=== PATIENT | male | born 1975 | race Two or more races ===

== ENCOUNTER 2024-07-28 15:19 | Inpatient (IN) | payer MEDICAID, OTHER ==
[~2024-07-28] VITALS: Ht 188 cm; Wt 85.8 kg
--- NOTE | 2024-07-28 15:38 | ED.PDOC ---
History of Present Illness HPI Comments This is a 49-year-old male who comes in with chief complaint of abdominal pain. The patient states that the pain started approximately 2 hours ago. He states that over the past three days he has had some hematuria at approximately two it hours ago he developed some left lower quadrant pain that radiates to the left upper quadrant. The patient denies any fever or chills. He denies any dysuria. 911 was called and the patient was transported to our facility. EN route, the patient received 250 cc of normal saline and had an Accu-Chek of 378. 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 Associated signs and symptoms Associated hematuria with the left upper and lower quadrant pain Past Medical History PAST MEDICAL HISTORY: DM, High Lipids, HTN Past Medical History (Other): Pancreatitis, left DVT Surgical History: Denies all surgeries Family History Family History: Family hx of DM, Family hx of Cancer Social History Smoker: Cigarettes Alcohol: Occasionally Drugs: Denies Drug Use Lives In: Home Constitutional: denies: chills, diaphoresis, fatigue, fever, malaise, sweats, weakness, others EENTM: denies: blurred vision, double vision, ear bleeding, ear discharge, ear drainage, ear pain, ear ringing, eye pain, eye redness, hearing loss, mouth pain, mouth swelling, nasal discharge, nose bleeding, nose congestion, nose pain, photophobia, tearing, throat pain, throat swelling, voice changes, others Respiratory: denies: cough, hemoptysis, orthopnea, SOB at rest, shortness of breath, SOB with excertion, stridor, wheezing, others Cardiovascular: denies: chest pain, dizzy spells, diaphoresis, Dyspnea on exertion, edema, irregular heart beat, left arm pain, lightheadedness, palpitations, PND, syncope, others Gastrointestinal: reports: abdominal pain; denies: abdomen distended, blood streaked bowels, constipated, diarrhea, dysphagia, difficulty swallowing, hematemesis, melena, nausea, poor appetite, poor fluid intake, rectal bleeding, rectal pain, vomiting, others Genitourinary: reports: hematuria; denies: burning, dysuria, flank pain, frequency, incontinence, penile discharge, penile sore, pain, testicle pain, testicle swelling, urgency, others Neurological: denies: dizziness, fainting, headache, left sided numbness, left sided weakness, numbness, paresthesia, pre-existing deficit, right sided numbness, right sided weakness, seizure, speech problems, tingling, tremors, weakness, others Musculoskeletal: denies: back pain, gout, joint pain, joint swelling, muscle pain, muscle stiffness, neck pain, others Integumetry: denies: bruises, change in color, change in hair/nails, dryness, laceration, lesions, lumps, rash, wounds, others Allergic/Immunocompromised: denies: Difficulty Healing, Frequent Infections, Hives, Itching, others Hematologic/Lymphatic: denies: anemia, blood clots, easy bleeding, easy bruising, swollen glands, others Endocrine: denies: excessive hunger, excessive sweating, excessive thirst, excessive urination, flushing, intolerance to cold, intolerance to heat, unexplained weight gain, unexplained weight loss, others Psychiatric: denies: anxiety, bipolar disorder, depression, hopeless, panic disorder, schizophrenia, sleepless, suicidal, others Physical Exam General Appearance: Moderate Distress HEENT: Normal ENT Inspection, Pharynx Normal, TMs Normal Neck: Full Range of Motion, Non-Tender, Normal, Normal Inspection Respiratory: Chest Non-Tender, Lungs Clear, No Accessory Muscle Use, No Respiratory Distress, Normal Breath Sounds Cardiovascular: No Edema, No JVD, No Murmur, No Gallop, Normal Peripheral Pulses, Regular Rate/Rhythm Breast Exam: Deferred Gastrointestinal: LLQ, LUQ, No Organomegaly, No Pulsatile Mass, Normal Bowel Sounds, Soft, Tenderness Genitalia: Deferred Pelvic: Deferred Rectal: Deferred Extremities: No calf tenderness, Normal capillary refill, Normal inspection, Normal range of motion, Non-tender, No pedal edema Musculoskeletal : Apperance: Normal Neurologic: Alert, deputy chief magistrate II-XII nml as Tested, No Motor Deficits, Normal Affect, Normal Mood, No Sensory Deficits Cerebellar Function: Normal Reflexes: Normal Skin: Dry, Normal Color, Warm Lymphatic: No Adenopathy Was a procedure done? Was a procedure done?: No Differential Dx Considerations may include: Diverticulitis, UTI, renal stones X-Ray, Labs, Meds, VS Vital Signs Date Time Temp Pulse Resp B/P (MAP) Pulse Ox O2 Delivery O2 Flow Rate FiO2 07/28/24 15:30 98.4 102 18 161/88 (112) 96 98.4 Lab Test 07/28/24 17:12 07/28/24 15:40 Range/Units Sodium Level 133 L 136-145 mmol/L Potassium Level 3.6 3.5-5.1 mmol/L Chloride Level 98 98-107 mmol/L Carbon Dioxide Level 24 20-31 mmol/L Anion Gap 11 5-15 Blood Urea Nitrogen 9 9-23 mg/dL Creatinine 1.14 0.700-1.30 mg/dL Glomerular Filtration Rate Calc 78 >90 mL/min BUN/Creatinine Ratio 7.9 L 10.0-20.0 Serum Glucose 359 H 74-106 mg/dL Calcium Level 9.7 8.7-10.4 mg/dL Total Bilirubin 0.5 0.2-1.0 mg/dL Aspartate Amino Transferase (AST) 12 L 13-40 U/L Alanine Aminotransferase (ALT) 10 7-40 U/L Alkaline Phosphatase 158 H 46-116 U/L Total Protein 8.1 5.7-8.2 g/dL Albumin 4.2 3.2-4.8 g/dL Lipase 51 12-53 U/L White Blood Count 7.8 4.4-10.8 10^3/uL Red Blood Count 5.81 4.5-5.90 10^6/uL Hemoglobin 15.3 13.5-17.5 g/dL Hematocrit 46.4 41.0-53.0 % Mean Corpuscular Volume 79.8 L 80.0-100.0 fL Mean Corpuscular Hemoglobin 26.3 L 28.0-32.0 pg Mean Corpuscular Hemoglobin Concent 33.0 32.0-36.0 g/dL Red Cell Distribution Width 17.0 H 11.8-14.3 % Platelet Count 333 140-450 10^3/uL Mean Platelet Volume 8.5 6.9-10.8 fL Neutrophils (%) (Auto) 68.1 37.0-80.0 % Lymphocytes (%) (Auto) 22.7 10.0-50.0 % Monocytes (%) (Auto) 8.2 0.0-12.0 % Eosinophils (%) (Auto) 0.5 0.0-7.0 % Basophils (%) (Auto) 0.5 0.0-2.0 % Neutrophils # (Auto) 5.3 1.6-8.6 10 ^3/uL Lymphocytes # (Auto) 1.8 0.4-5.4 10 ^3/uL Monocytes # (Auto) 0.6 0-1.3 10 ^3/uL Eosinophils # (Auto) 0 0-0.8 10 ^3/uL Basophils # (Auto) 0 0-0.2 10 ^3/uL Nucleated Red Blood Cells 0.1 % IV Hep-Lock was established The patient is being given morphine 4 mg IV push for the pain The patient was given Zofran 4 mg IV push for the nausea Cat scan of the abdomen and pelvis shows: IMPRESSION: 1. No acute abdominal or pelvic findings. Bladder is diffusely thick walled, correlate for cystitis. Diffuse soft tissue density in the retroperitoneum, could be related to retroperitoneal fibrosis. This can be better evaluated with CT of the abdomen and pelvis with contrast. The patient's CBC and chemistry panel is within normal limits The patient's glucose is 359 The patient continues to have abdominal pain Images Reviewed?: Images reviewed and evaluated by me Time of 1ST Reevaluation: 15:37 Reevaluation 1ST: Unchanged Patient Education/Counseling: Diagnosis, Treatment, Prognosis Family Education/Counseling: No Family Present Departure 1 Departure Time of Disposition: 15:38 Impression: Primary Impression: Abdominal pain of unknown etiology Disposition: 09 ADMITTED INPATIENT Admit to: Med Surg Condition: Fair Critical Care Note Critical Care Time?: No Stability Stability form required: Yes Unstable for transfer: ED Physician Assesment (Clinical assesment) Heart Score Heart Score: Heart Score Response (Comments) Value History N/A 0 EKG N/A 0 Age N/A 0 Risk Factors N/A 0 Troponin N/A 0 Total 0 IBRAHIMA LUO MD July 28, 2024 15:38
[2024-07-28 15:50] LABS: Basophils # (auto) 0 10 ^3/uL (0-0.2); Basophils % (auto) 0.5 % (0.0-2.0); Eosinophils # (auto) 0 10 ^3/uL (0-0.8); Eosinophils % (auto) 0.5 % (0.0-7.0); Hematocrit 46.4 % (41.0-53.0); Hemoglobin 15.3 g/dL (13.5-17.5); Lymphocytes # (auto) 1.8 10 ^3/uL (0.4-5.4); Lymphocytes % (auto) 22.7 % (10.0-50.0); Mean Corpuscular Hemoglobin 26.3 pg (28.0-32.0); Mean Corpuscular Volume 79.8 fL (80.0-100.0); Monocytes # (auto) 0.6 10 ^3/uL (0-1.3); Monocytes % (auto) 8.2 % (0.0-12.0); Neutrophils # (auto) 5.3 10 ^3/uL (1.6-8.6); Neutrophils % (auto) 68.1 % (37.0-80.0); Nucleated Red Blood Cells % 0.1 %; Platelet Count (auto) 333 10^3/uL (140-450); Red Blood Cells 5.81 10^6/uL (4.5-5.90); White Blood Cell 7.8 10^3/uL (4.4-10.8)
--- NOTE | 2024-07-28 16:53 | DVH ---
Exam: CT CT AB PEL WO CON-NO ORAL OR IV History: pain llq Comparison Study: None Technique: Multidetector spiral CT of the abdomen and pelvis was performed from lung bases to pubic symphysis. Imaging was performed without IV contrast. Axial, coronal and sagittal multiplanar reform ats were obtained from the axial data set by the technologist. Radiation dose : Abdomen/Pelvis: CTDIvol 8 mGy, DLP 489 mGy*cm. Findings: Evaluation of solid organs is limited due to lack of intravenous contrast use. Lung Bases: No acute or significant lung base finding. Normal heart size. No pleural or pericardial effusion. Liver: The liver is normal in size. No focal lesions. Gallbladder and biliary Tree: Unremarkable Spleen: Unremarkable Pancreas: The pancreas is grossly normal in appearance. Adrenal Glands: Unremarkable Kidneys: Kidneys are grossly normal without calculi or hydronephrosis. Bladder: Diffusely thick walled. Bowel: The stomach is grossly normal in appearance. Small bowel and colon are normal in caliber and d istribution. Normal appendix is visualized in the right lower quadrant without findings of appendicit is. Ascites: Absent Lymphadenopathy: No mesenteric, retroperitoneal or periportal lymphadenopathy. Abdominal wall and Mesentery: Diffuse soft tissue density in the retroperitoneum. Vasculature: The visualized abdominal aorta is normal in size and caliber. Evaluation of abdominal a nd pelvic vessels is limited due to lack of intravenous contrast. Pelvic Organs: Unremarkable Musculoskeletal: No aggressive focal bony lesions, acute fractures or dislocation. IMPRESSION: 1. No acute abdominal or pelvic findings. Bladder is diffusely thick walled, correlate for cystitis. Diffuse soft tissue density in the retroperitoneum, could be related to retroperitoneal fibrosis. Thi s can be better evaluated with CT of the abdomen and pelvis with contrast. Radiation optimization: All CT scans at this facility use at least one of these dose optimization niko hniques: Automated exposure control mA and/or kV adjustment per patient size (includes targeted exams where dose is matched to clinical indication) or iterative reconstruction. HS:Y
[2024-07-28 18:14] LABS: Anion Gap 11 (5-15); BUN/Creatinine Ratio 7.9 (10.0-20.0)
[2024-07-28 18:15] LABS: Alanine Aminotransferase 10 U/L (7-40); Alkaline Phosphatase 158 U/L (46-116); Aspartate Aminotransferase 12 U/L (13-40); Blood Urea Nitrogen 9 mg/dL (9-23); Calcium 9.7 mg/dL (8.7-10.4); Carbon Dioxide 24 mmol/L (20-31); Chloride 98 mmol/L (98-107); Glucose 359 mg/dL (74-106); Potassium 3.6 mmol/L (3.5-5.1); Sodium 133 mmol/L (136-145)
[2024-07-28 18:16] LABS: Albumin 4.2 g/dL (3.2-4.8); Bilirubin, Total 0.5 mg/dL (0.2-1.0); Lipase 51 U/L (12-53); Total Protein 8.1 g/dL (5.7-8.2)
[2024-07-28] MEDS ORDERED: MORPHINE SULFATE INJ 2 MG/ml SYRG IV PRN (23:30)
[2024-07-28] MEDS ORDERED: DEXTROSE (50%) 50ML SYRG IV PRN (23:30)
[2024-07-28] MEDS ORDERED: ONDANSETRON HCL 4 MG/2 ML VIAL IV PRN (23:30)
--- NOTE | 2024-07-28 23:32 | DVHHP2 ---
History of Present Illness Reason for Visit: Abdominal pain History of Present Illness 49-year-old male presents for evaluation of abdominal pain. Patient reports noticing hematuria three days ago. He states that since yesterday his urine has been clear. He states that two days ago he developed diffuse abdominal pain that is intermittent with associated dizziness. No nausea or vomiting. No fever or chills. Past Medical History Hypertension, diabetes mellitus Past Surgical History Denies Family History Cancer and diabetes mellitus Smoke: <1 pack per day ALCOHOL: occassional Drugs: None Lives: with Family Review of Systems Review of Systems Review of systems are currently negative otherwise addressed in HPI. Allergies: Coded Allergies: Acetaminophen (Verified Allergy, Unknown, 07/28/24) Hydrocodone (Verified Allergy, Unknown, 07/28/24) Exam Vital Signs Vital Signs Date Time Temp Pulse Resp B/P (MAP) Pulse Ox O2 Delivery O2 Flow Rate FiO2 07/28/24 23:00 98.6 105 16 153/94 (113) 97 98.6 Exam Gen: 49-year-old male in no apparent distress Skin: Warm, dry, normal color and texture, no rash. HEENT: Normocephalic atraumatic, mucous membranes moist and pink. Neck: Cervical and supraclavicular nodes normal without enlargement, trachea is midline, thyroid gland is normal without masses. Pulmonary: Clear to auscultation and percussion bilaterally. Cardiac: Regular rate and rhythm. No murmur Abdomen: Soft, nontender, nondistended, bowel sounds present all 4 quadrants, no guarding, no rigidity, no organomegaly. Extremities: No cyanosis, clubbing, no edema Neuro: Cranial nerves II through XII grossly intact, normal affect and speech, no focal motor deficits. Labs/Xrays ORDERING PHYSICIAN: IBRAHIMA LUO MD PROCEDURE(s): ABPL - CT AB PEL WO CON-NO ORAL OR IV REASON: pain llq ORDER NUMBER(s): [id number], ACCESSION NUMBER(s): [id number] Exam: CT CT AB PEL WO CON-NO ORAL OR IV History: pain llq Comparison Study: None Technique: Multidetector spiral CT of the abdomen and pelvis was performed from lung bases to pubic symphysis. Imaging was performed without IV contrast. Axial, coronal and sagittal multiplanar reformats were obtained from the axial data set by the technologist. Radiation dose : Abdomen/Pelvis: CTDIvol 8 mGy, DLP 489 mGy*cm. Findings: Evaluation of solid organs is limited due to lack of intravenous contrast use. Lung Bases: No acute or significant lung base finding. Normal heart size. No pleural or pericardial effusion. Liver: The liver is normal in size. No focal lesions. Gallbladder and biliary Tree: Unremarkable Spleen: Unremarkable Pancreas: The pancreas is grossly normal in appearance. Adrenal Glands: Unremarkable Kidneys: Kidneys are grossly normal without calculi or hydronephrosis. Bladder: Diffusely thick walled. Bowel: The stomach is grossly normal in appearance. Small bowel and colon are no rmal in caliber and distribution. Normal appendix is visualized in the right lower quadrant without findings of appendicitis. Ascites: Absent Lymphadenopathy: No mesenteric, retroperitoneal or periportal lymphadenopathy. Abdominal wall and Mesentery: Diffuse soft tissue density in the retroperitoneum. Vasculature: The visualized abdominal aorta is normal in size and caliber. Evaluation of abdominal and pelvic vessels is limited due to lack of intravenous contrast. Pelvic Organs: Unremarkable Musculoskeletal: No aggressive focal bony lesions, acute fractures or dislocation. IMPRESSION: 1. No acute abdominal or pelvic findings. Bladder is diffusely thick walled, correlate for cystitis. Diffuse soft tissue density in the retroperitoneum, could be related to retroperitoneal fibrosis. This can be better evaluated with CT of the abdomen and pelvis with contrast. Radiation optimization: All CT scans at this facility use at least one of these dose optimization techniques: Automated exposure control mA and/or kV adjustment per patient size (includes targeted exams where dose is matched to clinical indication) or iterative reconstruction. HS:Y Labs Test 07/28/24 17:12 07/28/24 15:40 Range/Units Sodium Level 133 L 136-145 mmol/L Potassium Level 3.6 3.5-5.1 mmol/L Chloride Level 98 98-107 mmol/L Carbon Dioxide Level 24 20-31 mmol/L Anion Gap 11 5-15 Blood Urea Nitrogen 9 9-23 mg/dL Creatinine 1.14 0.700-1.30 mg/dL Glomerular Filtration Rate Calc 78 >90 mL/min BUN/Creatinine Ratio 7.9 L 10.0-20.0 Serum Glucose 359 H 74-106 mg/dL Calcium Level 9.7 8.7-10.4 mg/dL Total Bilirubin 0.5 0.2-1.0 mg/dL Aspartate Amino Transferase (AST) 12 L 13-40 U/L Alanine Aminotransferase (ALT) 10 7-40 U/L Alkaline Phosphatase 158 H 46-116 U/L Total Protein 8.1 5.7-8.2 g/dL Albumin 4.2 3.2-4.8 g/dL Lipase 51 12-53 U/L White Blood Count 7.8 4.4-10.8 10^3/uL Red Blood Count 5.81 4.5-5.90 10^6/uL Hemoglobin 15.3 13.5-17.5 g/dL Hematocrit 46.4 41.0-53.0 % Mean Corpuscular Volume 79.8 L 80.0-100.0 fL Mean Corpuscular Hemoglobin 26.3 L 28.0-32.0 pg Mean Corpuscular Hemoglobin Concent 33.0 32.0-36.0 g/dL Red Cell Distribution Width 17.0 H 11.8-14.3 % Platelet Count 333 140-450 10^3/uL Mean Platelet Volume 8.5 6.9-10.8 fL Neutrophils (%) (Auto) 68.1 37.0-80.0 % Lymphocytes (%) (Auto) 22.7 10.0-50.0 % Monocytes (%) (Auto) 8.2 0.0-12.0 % Eosinophils (%) (Auto) 0.5 0.0-7.0 % Basophils (%) (Auto) 0.5 0.0-2.0 % Neutrophils # (Auto) 5.3 1.6-8.6 10 ^3/uL Lymphocytes # (Auto) 1.8 0.4-5.4 10 ^3/uL Monocytes # (Auto) 0.6 0-1.3 10 ^3/uL Eosinophils # (Auto) 0 0-0.8 10 ^3/uL Basophils # (Auto) 0 0-0.2 10 ^3/uL Nucleated Red Blood Cells 0.1 % Assessment/Plan Assessment/Plan Assessment Acute abdominal pain Questionable cystitis Uncontrolled diabetes mellitus Hypertension Plan Admit the patient to [facility] to the hospitalist GI consult Clear liquid diet UA pending Resume home medications Continue treatment per orders. Plan discussed with: Patient My Orders Orders - LISBETH BIGGS Procedure Category Date Status Time Admit ADMIT 07/28/24 Transmitted 19:59 Urinalysis LAB 07/28/24 Logged 23:24 Metoprolol Tartrate PHA 07/29/24 Logged Tablet (Lopressor Ta 10:00 Pantoprazole Tablet PHA 07/29/24 Logged (Protonix Tablet) 06:00 * Gi Dvh Tread Builder CONS 07/28/24 Transmitted 23:24 Basic Metabolic Panel LAB 07/29/24 Verified 04:00 Ondansetron Hcl PHA 07/28/24 Logged (Zofran) 23:30 Complete Blood Count LAB 07/29/24 Verified 04:00 Condition: Stable MINAL 07/28/24 In Process 23:24 Acetaminophen Tablet PHA 07/28/24 Logged (Tylenol Tablet) 23:30 Clear Liq Diet DIET 07/29/24 Transmitted Breakfast Bedrest With Bathroom MINAL 07/28/24 In Process Privileg 23:24 Glucose Blood PHA 07/29/24 Logged (Accu-Chek Comfort 00:00 Insulin R (Human) PHA 07/29/24 Logged (Insulin R) 00:00 Dextrose 50% Syringe PHA 07/28/24 Logged 23:30 Morphine Sulfate PHA 07/28/24 Logged Injection 23:30 Date of Service: July 28, 2024 Billing Provider: LISBETH BIGGS Common Visit Codes: [id number] INP/OBS CARE (MOD) LISBETH BIGGS July 28, 2024 23:32
[2024-07-29] MEDS: InsuLIN REG 1unit/0.01ml Soln (100units/ml) SC SCH
[2024-07-29] MEDS: ACCU-CHEK COMFORT CURVE STRIP VI SCH (05:08)
[2024-07-29] MEDS: PANTOPRAZOLE 40 MG/10 ML VIAL INJ IV ONE (05:08)
[2024-07-29] MEDS: ONDANSETRON HCL 4 MG/2 ML VIAL IV ONE (05:08)
[2024-07-29] MEDS: SODIUM CHLORIDE 0.9% 500 ML IVB ONE (05:09)
[2024-07-29] MEDS: MORPHINE SULFATE 4 MG/ML SYR/VIAL IV ONE (05:09)
[2024-07-29] MEDS: PANTOPRAZOLE 40 MG TAB PO SCH (06:00)
[2024-07-29 06:07] VITALS: PULSE 101; RESP 18; O2SAT 98
[2024-07-29 06:54] LABS: Eosinophils # (auto) 0.1 10 ^3/uL (0-0.8); Hemoglobin 15.5 g/dL (13.5-17.5); Lymphocytes # (auto) 2.2 10 ^3/uL (0.4-5.4); Monocytes # (auto) 0.6 10 ^3/uL (0-1.3); Nucleated Red Blood Cells % 0.2 %
[2024-07-29 06:55] LABS: Basophils # (auto) 0.1 10 ^3/uL (0-0.2); Basophils % (auto) 0.9 % (0.0-2.0); Eosinophils % (auto) 1.1 % (0.0-7.0); Lymphocytes % (auto) 29.4 % (10.0-50.0); Mean Corpuscular Hemoglobin 26.1 pg (28.0-32.0); Mean Corpuscular Hgb Conc. 32.2 g/dL (32.0-36.0); Mean Corpuscular Volume 80.9 fL (80.0-100.0); Monocytes % (auto) 7.4 % (0.0-12.0); Neutrophils # (auto) 4.6 10 ^3/uL (1.6-8.6); Neutrophils % (auto) 61.2 % (37.0-80.0); Platelet Count (auto) 322 10^3/uL (140-450); Red Blood Cells 5.93 10^6/uL (4.5-5.90); Red Cell Distribution Width 16.6 % (11.8-14.3); White Blood Cell 7.5 10^3/uL (4.4-10.8)
[2024-07-29 06:56] LABS: Anion Gap 10 (5-15); Carbon Dioxide 26 mmol/L (20-31); Potassium 4.1 mmol/L (3.5-5.1)
[2024-07-29 06:57] LABS: Calcium 9.8 mg/dL (8.7-10.4)
[2024-07-29 07:02] LABS: BUN/Creatinine Ratio 9.8 (10.0-20.0); Blood Urea Nitrogen 12 mg/dL (9-23); Chloride 96 mmol/L (98-107); Glucose 331 mg/dL (74-106); Sodium 132 mmol/L (136-145)
[2024-07-29 11:17] LABS: Urine Bacteria None Seen /hpf (None Seen)
[2024-07-29] MEDS: METOPROLOL TARTRATE 25 MG TAB PO SCH (11:21)
[2024-07-29 11:28] LABS: Urine Blood Negative /uL (Negative); Urine Clarity Clear (Clear); Urine Color Light-Yellow (Yellow); Urine Protein, UAD 1+ (Negative); Urine Specific Gravity 1.018 (1.001-1.035); Urine Squamous Epithelial Cell FEW /hpf (<5); Urine Urobilinogen Normal (Negative); Urine WBC 30 /HPF (0-3)
--- NOTE | 2024-07-29 11:28 | DVHINCON2 ---
GI Consult Consult Note GI consult note Date of Consultation: 07/29/2024 Chief Complaint: Abdominal pain Referring Physician: Brandon MARTÍNEZ H&P: 49-year-old male presented to ER for abdominal pain. Patient is seen in ER lobby. Started one day ago, pain is improving at this time. Feels similar to when patient had pancreatitis in the past. No nausea or vomiting. Last bowel movement one day ago, no melena or red blood in stool. Patient is complaining of dizziness and is using a wheelchair at this time. Patient also complains of hematuria, last week, passed a kidney stone. No hematuria at this time SP EGD/colonoscopy three years ago, WNL per patient Past Medical History: Hypertension, diabetes Past Surgical History: Denies Social History: Smoke: <1 pack per day ALCOHOL: occassional Drugs: None Lives: with Family Family History: Noncontributory Review of Systems: Constitutional: no fever, chill, weight loss HEENT: no eye pain, no hearing loss, no oral lesion, no scleral icterus Heart: no chest pain, no chest pressure Lung: no cough, no dyspnea with exertion Abdomen: see HPI Physical exam: General: NAD, AAOX3 Chest: lung philip clear to auscultation Heart: RRR, no murmur Abdomen: non-distended, no tenderness to palpation, +BS Labs: Labs Test 07/29/24 11:15 07/29/24 06:13 07/29/24 04:58 07/28/24 17:12 Range/Units White Blood Count 7.5 4.4-10.8 10^3/uL Red Blood Count 5.93 H 4.5-5.90 10^6/uL Hemoglobin 15.5 13.5-17.5 g/dL Hematocrit 48.0 41.0-53.0 % Mean Corpuscular Volume 80.9 80.0-100.0 fL Mean Corpuscular Hemoglobin 26.1 L 28.0-32.0 pg Mean Corpuscular Hemoglobin Concent 32.2 32.0-36.0 g/dL Red Cell Distribution Width 16.6 H 11.8-14.3 % Platelet Count 322 140-450 10^3/uL Mean Platelet Volume 8.6 6.9-10.8 fL Neutrophils (%) (Auto) 61.2 37.0-80.0 % Lymphocytes (%) (Auto) 29.4 10.0-50.0 % Monocytes (%) (Auto) 7.4 0.0-12.0 % Eosinophils (%) (Auto) 1.1 0.0-7.0 % Basophils (%) (Auto) 0.9 0.0-2.0 % Neutrophils # (Auto) 4.6 1.6-8.6 10 ^3/uL Lymphocytes # (Auto) 2.2 0.4-5.4 10 ^3/uL Monocytes # (Auto) 0.6 0-1.3 10 ^3/uL Eosinophils # (Auto) 0.1 0-0.8 10 ^3/uL Basophils # (Auto) 0.1 0-0.2 10 ^3/uL Nucleated Red Blood Cells 0.2 % Sodium Level 132 L 136-145 mmol/L Potassium Level 4.1 3.5-5.1 mmol/L Chloride Level 96 L 98-107 mmol/L Carbon Dioxide Level 26 20-31 mmol/L Anion Gap 10 5-15 Blood Urea Nitrogen 12 9-23 mg/dL Creatinine 1.23 0.700-1.30 mg/dL Glomerular Filtration Rate Calc 72 >90 mL/min BUN/Creatinine Ratio 9.8 L 10.0-20.0 Serum Glucose 331 H 74-106 mg/dL Calcium Level 9.8 8.7-10.4 mg/dL POC Glucose 351 H 70-106 mg/dl Total Bilirubin 0.5 0.2-1.0 mg/dL Aspartate Amino Transferase (AST) 12 L 13-40 U/L Alanine Aminotransferase (ALT) 10 7-40 U/L Alkaline Phosphatase 158 H 46-116 U/L Total Protein 8.1 5.7-8.2 g/dL Albumin 4.2 3.2-4.8 g/dL Lipase 51 12-53 U/L Imaging: CT abdomen pelvis IMPRESSION: 1. No acute abdominal or pelvic findings. Bladder is diffusely thick walled, correlate for cystitis. Diffuse soft tissue density in the retroperitoneum, could be related to retroperitoneal fibrosis. This can be better evaluated with CT of the abdomen and pelvis with contrast. Assessment: Abdominal pain improving now Cystitis History of pancreatitis Plan: Discussed with Dr. Robbins UA Recommend antibiotics if needed to treat the cystitis Advance diet as tolerated Outpatient GI follow-up recommended for further GI workup as needed Thank you for this consult Date of Service: July 29, 2024 Billing Provider: JEFFERY MALDONADO Common Visit Codes: CONSULT ONLY Consultation Codes: [id number] CONSULT <60MIN JEFFERY MALDONADO July 29, 2024 11:28
[2024-07-29] MEDS: SUCRALFATE 1 GM/10 ML ORAL SUSP GT ONE (12:00)
[2024-07-29] MEDS: INSULIN LANTUS (GLARGINE) 1 /0.01ml (100units/ml) SC ONE (13:29)
[2024-07-29] MEDS: cefTRIAXone 1GM/50ML D5W 50 ML IV ONE (13:45)
[2024-07-29 17:00] VITALS: BP 147/96; PULSE 85; RESP 18; TEMP 98.5; O2SAT 99
--- NOTE | 2024-07-29 18:58 | DVHPNRES ---
Progress Note Date Seen: July 29, 2024 Resident Creating Document: ATTILA VANCE RESIDENT Has the PT tested + for MRSA If YES, has PT been informed?: No Medical Necessity Reason Pt with a Central, PICC or Fol: No Medical Necessity Reason History of Present Illness 49-year-old male presents for evaluation of abdominal pain. Patient reports noticing hematuria three days ago. He states that since yesterday his urine has been clear. He states that two days ago he developed diffuse abdominal pain that is intermittent with associated dizziness. No nausea or vomiting. No fever or chills. Past Medical History: Hypertension, diabetes mellitus, pancreatitis Past Surgical History: Denies Family History: Cancer and diabetes mellitus Social History : Smoke: <1 pack per day, ALCOHOL: occassional, Lives: with Family, 11 year incarcerated released 2021 PN: 07/29/2024 Patient is a 49-year-old male with a past medical history of hypertension diabetes irregular heartbeat, bleeding varices left lower extremity DVT depression and schizophrenia. Patient presented to the ED due to lower abdominal pain with radiation up towards the epigastrium region. Per the patient, last week Saturday he actually had gross hematuria associated with flank pain for 1 day. The 2nd day the patient passed a stone and the hematuria resolved. Patient today, had nor major complaints othe than mild epigastric pain rated 2/10. Patient is associated with mild nausea,but nor vomiting. Patient currently lives in a recuperative center and he takes Lantus metformin and lisinopril among others. He does not remember any of his psych medication. His initial lab work showed WBC unremarkable, CMP revealed mild hyponatremia otherwise unremarkable. CT abdomen showed that No acute abdominal or pelvic findings. Bladder is diffusely thick walled, correlate for cystitis. Diffuse soft tissue density in the retroperitoneum, could be related to retroperitoneal fibrosis. This can be better evaluated with CT of the abdomen and pelvis with contrast. Subjective Review of Systems Constitutional: Denies fever no chills no feeling of malaise HEENT: Denies headache, ear pain, ear discharges, conjunctivitis, nasal discharge throat pain Cardiovascular: Denies chest pain, palpitation, orthopnea, PND, or pedal edema Respiratory: Denies shortness of breath, cough cough, sputum production, hemoptysis, GI: Denies abdominal pain, nausea, vomiting, diarrhea, hematemesis, hematochezia, : Denies frequency, urgency, hematuria, Endocrine: Denies unintentional weight gain or weight loss, feeling of hot flashes, Anjum: Denies easy bruising, bleeding disorders, epistaxis Musculoskeletal: Denies joint pains, muscle aches Psych: No evidence of depression, italo, suicidal ideation Objective vital signs Vital Sign Date Time Temp Pulse Resp B/P (MAP) Pulse Ox O2 Delivery O2 Flow Rate FiO2 07/29/24: 80 140/91 07/29/24 11:21 98.3 16 96 98.3 07/29/24 06:07 Room Air* 0 21 Total Intake and Output 07/28/24 07/28/24 07/29/24 15:00 23:00 07:00 Intake Total 500 ml Balance 500 ml medications Current Medications Medications Dose Ordered Sig/Katrina Route Start Time Stop Time Status Last Admin Dose Admin Metoprolol Tartrate 25 mg BID PO 07/29/24 10:00 07/29/24 13:42 25 MG Pantoprazole Sodium 40 mg DAILY@0600 PO 07/29/24 06:00 Ondansetron HCl 4 mg Q4HP PRN IV 07/28/24 23:30 Acetaminophen 650 mg Q6HP PRN PO 07/28/24 23:30 Diagnostic Test (Pha) 1 strip Q6HR 07/29/24 00:00 07/29/24 17:38 1 STRIP Insulin Human Regular Q6HR SC 07/29/24 00:00 07/29/24 17:38 6 UNITS Dextrose 50 ml UD PRN IV 07/28/24 23:30 Morphine Sulfate 2 mg Q6HPRN PRN IV 07/28/24 23:30 Sucralfate 1 gm BID@0600,2200 GT 07/29/24 22:00 Ceftriaxone Sodium 50 ml @ 100 mls/hr DAILY@09 IV 07/30/24 09:00 Insulin Glargine 20 units QAM SC 07/30/24 07:00 Examination General Appearance: Alert, Oriented X3, Cooperative, No acute distress HEENT: Atraumatic, PERRLA, EOMI, Mucous membrane moist/pink Respiratory: Clear to auscultation, Normal air movement Cardiovascular: Regular rate, Normal S1, Normal S2, No murmurs, no chest wall tenderness GI: Patient has no teeth; NO distention, no tenderness, bowel sounds present, no scars noted Extremities: Left lower extremity DVT, with left lower extremity discoloration due to varicose vein bleeding, right lower extremity is unremarkable. Skin: No rashes, No breakdown, No significant lesion , Left lower extremity Neuro: Normal gait, Normal speech, Strength at 5/5 X4 ext, Normal tone, Sensation intact, Cranial nerves 3-12 NL, Reflexes 2+ Psych/Mental Status: Mental status NL, Mood NL laboratory and microbiology Laboratory Tests 07/29/24 06:13 Test 07/29/24 06:13 Range/Units Serum Glucose 331 H 74-106 mg/dL Problem List/Assessment/Plan Problem List/Assessment/Plan Assessment and plan Acute Abdominal pain likely due to cystitis --> Rule out other causes --> Zofran --> Carafate --> GI consult Acute Cystitis --> Bladder is diffusely thick walled --> ceftriaxone Uncontrolled diabetes type 2 --> A1c 13.4 --> Lantus 20 units q.h.s. --> Lispro 8 units AC --> ACCU-CHEKS Q.4 HOURS Hyponatremia --> monitor closely Diffuse soft tissue density in the retroperitoneum, could be related to retroperitoneal fibrosis History of pancreatitis History of depression --> continue home medications History of schizophrenia --> continue home medication Goal of care discussed for more than 16 minute: Full code Case and plan discussed with Dr. Selby Plan discussed with: Patient My Orders My Orders Orders - ATTILA VANCE Procedure Category Date Status Time Sucralfate Susp PHA 07/29/24 In Process (Carafate Susp) 22:00 Full Liq Diet DIET 07/29/24 Transmitted Lunch Ceftriaxone 1gm/50ml PHA 07/30/24 In Process D5w (Rocephin) 09:00 Insulin Lantus PHA 07/30/24 In Process (Glargine) (Lantus) 07:00 Date of Service: July 29, 2024 Billing Provider: VICTOR MANUEL SALEH MD Common Visit Codes: [id number] INP/OBS CARE(HIGH) ATTILA VANCE July 29, 2024 18:58 VICTOR MANUEL SALEH MD August 02, 2024 03:12
[2024-07-29 19:32] LABS: Opiate Scree,Urine Neg (NEGATIVE)
[2024-07-29 19:33] LABS: Amphetamine Screen, Urine Pos (NEGATIVE); Barbiturate Scree,Urine Neg (NEGATIVE); Benzodiazephine Screen, Urine Neg (NEGATIVE); Cannabinoid Screen, Urine Neg (NEGATIVE); Cocaine Screen, Urine Neg (NEGATIVE); Phencyclidine Screen, Urine Neg (NEGATIVE)
[2024-07-29] MEDS: SUCRALFATE 1 GM/10 ML ORAL SUSP GT SCH (21:57)
[2024-07-29 23:42] VITALS: BP 127/91; PULSE 83; RESP 17; TEMP 98.1; O2SAT 96
[2024-07-30] VITALS (8 sets, daily range): BP systolic 122–172; BP diastolic 77–106; PULSE 75–90; RESP 17–20; TEMP 97.4–98.4; O2SAT 95–100
[2024-07-30] MEDS: ACETAMINOPHEN 325 MG TAB PO PRN (01:24)
[2024-07-30] MEDS ORDERED: METF-370 PO (04:13)
[2024-07-30] MEDS ORDERED: ATOR10TA52 PO (04:14)
[2024-07-30] MEDS ORDERED: NIFE1TAB31 PO (04:15)
[2024-07-30] MEDS ORDERED: APIX2.5T PO (04:17)
[2024-07-30] MEDS ORDERED: HYDR25TA5 GT (04:21)
[2024-07-30] MEDS: INSULIN LISPRO (HUMAN) 100 UNITS/ML ML SC SCH (06:20)
[2024-07-30] MEDS: INSULIN LANTUS (GLARGINE) 1 /0.01ml (100units/ml) SC SCH (06:24)
[2024-07-30] MEDS: cefTRIAXone 1GM/50ML D5W 50 ML IV SCH (08:58)
[2024-07-30 11:27] LABS: Carbon Dioxide 26 mmol/L (20-31); Chloride 99 mmol/L (98-107); Potassium 4.2 mmol/L (3.5-5.1)
[2024-07-30 11:28] LABS: Calcium 10.2 mg/dL (8.7-10.4)
[2024-07-30 11:32] LABS: BUN/Creatinine Ratio 7.5 (10.0-20.0)
[2024-07-30 11:33] LABS: Anion Gap 8 (5-15); Blood Urea Nitrogen 8 mg/dL (9-23); Glucose 140 mg/dL (74-106); Sodium 133 mmol/L (136-145)
--- NOTE | 2024-07-30 11:55 | DVHPN2 ---
Subjective Patient admits to abdominal pain improving No nausea or vomiting Patient is hungry and would like his food tray Changes from previous H/P or p: No Changes Objective Vitals Vital Signs Date Time Temp Pulse Resp B/P (MAP) Pulse Ox O2 Delivery O2 Flow Rate FiO2 07/30/24 09:58 90 172/94 07/30/24 09:00 97.6 20 95 97.6 07/30/24 08:15 Room Air* 0 21 Intake/Output Intake and Output 07/30/24 07:00 Intake Total 100 ml Balance 100 ml Intake Oral 100 ml General Appearance: Alert, Oriented X3, Cooperative, No acute distress, mild distress, moderate distress, severe distress, Other Lungs: Clear to auscultation, Normal air movement, Other Cardiovascular: Regular rate, Normal S1, Normal S2, No murmurs, Gallops, Rubs, Other Abdomen: Normal bowel sounds, Soft, No tenderness, No hepatospenomegaly, No masses, Other Medications Current Medications Medications Dose Ordered Sig/Katrina Route Start Time Stop Time Status Last Admin Dose Admin Pantoprazole Sodium 40 mg DAILY@0600 PO 07/29/24 06:00 07/30/24 06:06 40 MG Ondansetron HCl 4 mg Q4HP PRN IV 07/28/24 23:30 Acetaminophen 650 mg Q6HP PRN PO 07/28/24 23:30 07/30/24 01:24 650 MG Diagnostic Test (Pha) 1 strip Q6HR 07/29/24 00:00 07/30/24 06:11 1 STRIP Insulin Human Regular Q6HR SC 07/29/24 00:00 07/30/24 06:20 4 UNITS Dextrose 50 ml UD PRN IV 07/28/24 23:30 Morphine Sulfate 2 mg Q6HPRN PRN IV 07/28/24 23:30 Sucralfate 1 gm BID@0600,2200 GT 07/29/24 22:00 07/30/24 06:11 1 GM Ceftriaxone Sodium 50 ml @ 100 mls/hr DAILY@09 IV 07/30/24 09:00 07/30/24 09:58 100 MLS/HR Insulin Glargine 20 units QAM SC 07/30/24 07:00 07/30/24 06:24 20 UNITS Insulin Human Lispro 8 units AC SC 07/30/24 07:00 07/30/24 06:20 8 UNITS Losartan Potassium 12.5 mg DAILY PO 07/31/24 10:00 Laboratory Results Laboratory Tests 07/29/24 06:13 07/30/24 10:40 Chemistry Test 07/30/24 10:40 Calcium Level 10.2 mg/dL (8.7-10.4) Urinalysis Test 07/29/24 11:15 Urine Color Light-yellow (Yellow) Urine Clarity Clear (Clear) Urine pH 6.0 (5.0-9.0) Urine Specific [place] 1.018 (1.001-1.035) Urine Protein 1+ (Negative) H Urine Ketones Trace (Negative) Urine Blood Negative /uL (Negative) Urine Nitrite Negative (Negative) Urine Bilirubin Negative (Negative) Urine Urobilinogen Normal mg/dL (Negative) Urine Leukocyte Esterase 1+ /uL (Negative) Urine RBC 4 /hpf (0 - 3) Urine Microscopic WBC 30 /HPF (0-3) H Urine Squamous Epithelial Cells Few /hpf (<5) Urine Bacteria None seen /hpf (None Seen) Urine Glucose 4+ mg/dL (Normal) H Labs and/or images reviewed: Labs reviewed by me, Image(s) reviewed by me Assessment/Plan Assessment/Plan Abdominal pain improving now Cystitis History of pancreatitis Plan: Discussed with Dr. Robbins Continue diet as tolerated Protonix and Carafate We will sign off on this patient Outpatient GI follow-up recommended next available appointment Repeat GI services if any changes Plan discussed with: Patient, Other (RN) Date of Service: July 30, 2024 Billing Provider: JEFFERY MALDONADO Common Visit Codes: [id number] INP/OBS CARE(HIGH) JEFFERY MALDONADO July 30, 2024 11:55
[2024-07-30] MEDS: LOSARTAN POTASSIUM 25 MG TAB PO ONE (12:19)
--- NOTE | 2024-07-30 19:23 | DVHPNRES ---
Progress Note Date Seen: July 30, 2024 Resident Creating Document: ATTILA VANCE RESIDENT Has the PT tested + for MRSA If YES, has PT been informed?: No Medical Necessity Reason Pt with a Central, PICC or Fol: No Medical Necessity Reason History of Present Illness 49-year-old male presents for evaluation of abdominal pain. Patient reports noticing hematuria three days ago. He states that since yesterday his urine has been clear. He states that two days ago he developed diffuse abdominal pain that is intermittent with associated dizziness. No nausea or vomiting. No fever or chills. Past Medical History: Hypertension, diabetes mellitus, pancreatitis Past Surgical History: Denies Family History: Cancer and diabetes mellitus Social History : Smoke: <1 pack per day, ALCOHOL: occassional, Lives: with Family, 11 year incarcerated released 2021 PN: 07/29/2024 Patient is a 49-year-old male with a past medical history of hypertension diabetes irregular heartbeat, bleeding varices left lower extremity DVT depression and schizophrenia. Patient presented to the ED due to lower abdominal pain with radiation up towards the epigastrium region. Per the patient, last week Saturday he actually had gross hematuria associated with flank pain for 1 day. The 2nd day the patient passed a stone and the hematuria resolved. Patient today, had nor major complaints othe than mild epigastric pain rated 2/10. Patient is associated with mild nausea,but nor vomiting. Patient currently lives in a recuperative center and he takes Lantus metformin and lisinopril among others. He does not remember any of his psych medication. His initial lab work showed WBC unremarkable, CMP revealed mild hyponatremia otherwise unremarkable. CT abdomen showed that No acute abdominal or pelvic findings. Bladder is diffusely thick walled, correlate for cystitis. Diffuse soft tissue density in the retroperitoneum, could be related to retroperitoneal fibrosis. This can be better evaluated with CT of the abdomen and pelvis with contrast. PN: 07/30/2024 Patient is seen and examined this morning. Complaint much about his diet. He wanted to have full meal instead of full liquid diet. Otherwise he is doing well. Patient also followed by the GI team as well. His abdominal pain seems to be increasing. Diabetes is poorly controlled with an A1c of 13.8. Patient's CT abdomen showed thickened bladder. Started on lantus and lispro. Urology consult for the with a thickened bladder and hematuria the concern for questionable bladder cancer. We will continue to monitor the patient closely. Subjective Review of Systems Constitutional: Denies fever no chills no feeling of malaise HEENT: Denies headache, ear pain, ear discharges, conjunctivitis, nasal discharge throat pain Cardiovascular: Denies chest pain, palpitation, orthopnea, PND, or pedal edema Respiratory: Denies shortness of breath, cough cough, sputum production, hemoptysis, GI: Denies abdominal pain, nausea, vomiting, diarrhea, hematemesis, hematochezia, : Denies frequency, urgency, hematuria, Endocrine: Denies unintentional weight gain or weight loss, feeling of hot flashes, Anjum: Denies easy bruising, bleeding disorders, epistaxis Musculoskeletal: Denies joint pains, muscle aches Psych: No evidence of depression, italo, suicidal ideation Objective vital signs Vital Sign Date Time Temp Pulse Resp B/P (MAP) Pulse Ox O2 Delivery O2 Flow Rate FiO2 07/30/24 17:00 98.4 89 18 149/91 (110) 99 98.4 07/30/24 08:15 Room Air* 0 21 Total Intake and Output 07/29/24 07/29/24 07/30/24 15:00 23:00 07:00 Intake Total 100 ml Balance 100 ml medications Current Medications Medications Dose Ordered Sig/Katrina Route Start Time Stop Time Status Last Admin Dose Admin Pantoprazole Sodium 40 mg DAILY@0600 PO 07/29/24 06:00 07/30/24 06:06 40 MG Ondansetron HCl 4 mg Q4HP PRN IV 07/28/24 23:30 Acetaminophen 650 mg Q6HP PRN PO 07/28/24 23:30 07/30/24 01:24 650 MG Diagnostic Test (Pha) 1 strip Q6HR 07/29/24 00:00 07/30/24 17:25 1 STRIP Insulin Human Regular Q6HR SC 07/29/24 00:00 07/30/24 17:26 8 UNITS Dextrose 50 ml UD PRN IV 07/28/24 23:30 Morphine Sulfate 2 mg Q6HPRN PRN IV 07/28/24 23:30 Sucralfate 1 gm BID@0600,2200 GT 07/29/24 22:00 07/30/24 06:11 1 GM Ceftriaxone Sodium 50 ml @ 100 mls/hr DAILY@09 IV 07/30/24 09:00 07/30/24 09:58 100 MLS/HR Insulin Glargine 20 units QAM SC 07/30/24 07:00 07/30/24 06:24 20 UNITS Insulin Human Lispro 8 units AC SC 07/30/24 07:00 07/30/24 12:20 8 UNITS Losartan Potassium 12.5 mg DAILY PO 07/31/24 10:00 Examination General Appearance: Alert, Oriented X3, Cooperative, No acute distress HEENT: Atraumatic, PERRLA, EOMI, Mucous membrane moist/pink Respiratory: Clear to auscultation, Normal air movement Cardiovascular: Regular rate, Normal S1, Normal S2, No murmurs, no chest wall tenderness Abdominal: NO distention, no tenderness, bowel sounds present, no scars noted Extremities: very dry skins, left leg discoloration Skin: No rashes, No breakdown, No significant lesion Neuro: Normal gait, Normal speech, Strength at 5/5 X4 ext, Normal tone, Sensation intact, Cranial nerves 3-12 NL, Reflexes 2+ Psych/Mental Status: Mental status NL, Mood NL laboratory and microbiology Laboratory Tests 07/30/24 10:40 07/29/24 06:13 Test 07/30/24 10:40 Range/Units Serum Glucose 140 #H 74-106 mg/dL Problem List/Assessment/Plan Problem List/Assessment/Plan Assessment and plan Acute Abdominal pain likely due to acute cystitis --> Rule out other causes --> Zofran --> Carafate --> GI consult Acute Cystitis --> Bladder is diffusely thick walled --> ceftriaxone Uncontrolled diabetes type 2 --> A1c 13.4 --> Lantus 20 units q.h.s. 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 Sola Sandoval discussed with: Patient My Orders My Orders Orders - ATTILA VANCE Procedure Category Date Status Time Consistent DIET 07/30/24 Transmitted Carb([facility])Diabetes Breakfast Urine Bacterial SUSY 07/30/24 Logged Culture 11:21 Losartan Tablet PHA 07/31/24 In Process (Cozaar Tablet) 10:00 * Urology Consult CONS 07/30/24 Transmitted 17:54 Date of Service: July 30, 2024 Billing Provider: VICTOR MANUEL SALEH MD Common Visit Codes: [id number] INP/OBS CARE(HIGH) ATTILA VANCE July 30, 2024 19:23 VICTOR MANUEL SALEH MD August 02, 2024 00:33
[2024-07-31] VITALS (7 sets, daily range): BP systolic 121–149; BP diastolic 74–99; PULSE 59–94; RESP 15–20; TEMP 98–98.4; O2SAT 96–100
--- NOTE | 2024-07-31 09:05 | DVHINCON2 ---
Date of service: July 31, 2024 Referring Physician Hospitalist Reason for Consultation thickened bladder wall History of Present Illness History Source: RN Notes, MD Notes Exam Limitations: No limitations HPI 49-year-old male presented to ER for abdominal pain. Patient is seen in ER lobby. Started one day ago, pain is improving at this time. Feels similar to when patient had pancreatitis in the past. No nausea or vomiting. Last bowel movement one day ago, no melena or red blood in stool. Patient is complaining of dizziness and is using a wheelchair at this time. Patient also complains of hematuria, last week, passed a kidney stone. No hematuria at this time SP EGD/colonoscopy three years ago, WNL per patient Past Medical History: Hypertension, diabetes Past Surgical History: Denies Social History: Smoke: <1 pack per day ALCOHOL: occassional Drugs: None Lives: with Family Family History: Noncontributory Home Meds Reported Medications Hctz (Hydrochlorothiazide) 25 Mg Tab, 25 MG GT, TAB 07/30/24 Apixaban Base (ELIQUIS) 2.5 Mg Tab, 2.5 MG PO BID, TAB 07/30/24 Nifedipine (Nifedipine Er) 30 Mg Tab, 1 TAB PO DAILY, #90 TAB 1 Refill 07/30/24 Atorvastatin Calcium (ATORVASTATIN CALCIUM) 10 Mg Tab, 1 TAB PO DAILY, #30 TAB 5 Refills 07/30/24 Metformin Hydrochloride (Metformin Hcl) 500 Mg Tab, 500 MG PO DAILY for 30 Days, MG 07/30/24 Past Medical History Patient Family History: Hypertension G8 MOTHER H&P Exam Vital Signs Vital Signs Date Time Temp Pulse Resp B/P (MAP) Pulse Ox O2 Delivery O2 Flow Rate FiO2 07/31/24 08:37 98.4 60 18 137/98 (111) 100 98.4 07/30/24 20:00 Room Air* 0 21 Labs/Xrays [address] [address] Ph: [phone] DIAGNOSTIC IMAGING Diagnostic Imaging Report : [id number] Signed PATIENT: FAZAL WILSON ACCT: [id number] UNIT: [id number] : 1975 LOC: ER ROOM / BED: / AGE / SEX: 49 / M ADM STATUS: REG ER SERVICE [id number] ORDERING PHYSICIAN: IBRAHIMA LUO MD PROCEDURE(s): ABPL - CT AB PEL WO CON-NO ORAL OR IV REASON: pain llq ORDER NUMBER(s): [id number], ACCESSION NUMBER(s): [id number] Exam: CT CT AB PEL WO CON-NO ORAL OR IV History: pain llq Comparison Study: None Technique: Multidetector spiral CT of the abdomen and pelvis was performed from lung bases to pubic symphysis. Imaging was performed without IV contrast. Axial, coronal and sagittal multiplanar reformats were obtained from the axial data set by the technologist. Radiation dose : Abdomen/Pelvis: CTDIvol 8 mGy, DLP 489 mGy*cm. Findings: Evaluation of solid organs is limited due to lack of intravenous contrast use. Lung Bases: No acute or significant lung base finding. Normal heart size. No pleural or pericardial effusion. Liver: The liver is normal in size. No focal lesions. Gallbladder and biliary Tree: Unremarkable Spleen: Unremarkable Pancreas: The pancreas is grossly normal in appearance. Adrenal Glands: Unremarkable Kidneys: Kidneys are grossly normal without calculi or hydronephrosis. Bladder: Diffusely thick walled. Bowel: The stomach is grossly normal in appearance. Small bowel and colon are normal in caliber and distribution. Normal appendix is visualized in the right lower quadrant without findings of appendicitis. Ascites: Absent Lymphadenopathy: No mesenteric, retroperitoneal or periportal lymphadenopathy. Abdominal wall and Mesentery: Diffuse soft tissue density in the retroperitoneum. Vasculature: The visualized abdominal aorta is normal in size and caliber. Evaluation of abdominal and pelvic vessels is limited due to lack of intravenous contrast. Pelvic Organs: Unremarkable Musculoskeletal: No aggressive focal bony lesions, acute fractures or dislocation. IMPRESSION: 1. No acute abdominal or pelvic findings. Bladder is diffusely thick walled, correlate for cystitis. Diffuse soft tissue density in the retroperitoneum, could be related to retroperitoneal fibrosis. This can be better evaluated with CT of the abdomen and pelvis with contrast. Radiation optimization: All CT scans at this facility use at least one of these dose optimization techniques: Automated exposure control mA and/or kV adjustment per patient size (includes targeted exams where dose is matched to clinical indication) or iterative reconstruction. HS:Y ATED BY: SP MOLINA MD DICTATED DATE/TIME: 07/28/241649 SIGNED BY: SP MOLINA MD SIGNED DATE/TIME: 07/28/241649 CC: Labs Test 07/31/24 06:24 07/30/24 10:40 07/29/24 11:15 07/29/24 06:13 Range/Units POC Glucose 215 H 70-106 mg/dl Sodium Level 133 L 136-145 mmol/L Potassium Level 4.2 3.5-5.1 mmol/L Chloride Level 99 98-107 mmol/L Carbon Dioxide Level 26 20-31 mmol/L Anion Gap 8 5-15 Blood Urea Nitrogen 8 L 9-23 mg/dL Creatinine 1.07 0.700-1.30 mg/dL Glomerular Filtration Rate Calc 85 >90 mL/min BUN/Creatinine Ratio 7.5 L 10.0-20.0 Serum Glucose 140 #H 74-106 mg/dL Calcium Level 10.2 8.7-10.4 mg/dL Urine Color Light-yellow Yellow Urine Clarity Clear Clear Urine pH 6.0 5.0-9.0 Urine Specific [place] 1.018 1.001-1.035 Urine Protein 1+ H Negative Urine Ketones Trace Negative Urine Blood Negative Negative /uL Urine Nitrite Negative Negative Urine Bilirubin Negative Negative Urine Urobilinogen Normal Negative mg/dL Urine Leukocyte Esterase 1+ Negative /uL Urine RBC 4 0 - 3 /hpf Urine Microscopic WBC 30 H 0-3 /HPF Urine Squamous Epithelial Cells Few <5 /hpf Urine Bacteria None seen None Seen /hpf Urine Glucose 4+ H Normal mg/dL Urine Opiates Screen Neg NEGATIVE Urine Fentanyl Screen Neg NEGATIVE Urine Barbiturates Screen Neg NEGATIVE Urine Phencyclidine Screen Neg NEGATIVE Urine Amphetamines Screen Pos NEGATIVE Urine Benzodiazepines Screen Neg NEGATIVE Urine Cocaine Screen Neg NEGATIVE Urine Cannabinoids Screen Neg NEGATIVE White Blood Count 7.5 4.4-10.8 10^3/uL Red Blood Count 5.93 H 4.5-5.90 10^6/uL Hemoglobin 15.5 13.5-17.5 g/dL Hematocrit 48.0 41.0-53.0 % Mean Corpuscular Volume 80.9 80.0-100.0 fL Mean Corpuscular Hemoglobin 26.1 L 28.0-32.0 pg Mean Corpuscular Hemoglobin Concent 32.2 32.0-36.0 g/dL Red Cell Distribution Width 16.6 H 11.8-14.3 % Platelet Count 322 140-450 10^3/uL Mean Platelet Volume 8.6 6.9-10.8 fL Neutrophils (%) (Auto) 61.2 37.0-80.0 % Lymphocytes (%) (Auto) 29.4 10.0-50.0 % Monocytes (%) (Auto) 7.4 0.0-12.0 % Eosinophils (%) (Auto) 1.1 0.0-7.0 % Basophils (%) (Auto) 0.9 0.0-2.0 % Neutrophils # (Auto) 4.6 1.6-8.6 10 ^3/uL Lymphocytes # (Auto) 2.2 0.4-5.4 10 ^3/uL Monocytes # (Auto) 0.6 0-1.3 10 ^3/uL Eosinophils # (Auto) 0.1 0-0.8 10 ^3/uL Basophils # (Auto) 0.1 0-0.2 10 ^3/uL Nucleated Red Blood Cells 0.2 % Hemoglobin A1c > 13.8 H <5.7 % A1C Test 07/28/24 17:12 Range/Units Total Bilirubin 0.5 0.2-1.0 mg/dL Aspartate Amino Transferase (AST) 12 L 13-40 U/L Alanine Aminotransferase (ALT) 10 7-40 U/L Alkaline Phosphatase 158 H 46-116 U/L Total Protein 8.1 5.7-8.2 g/dL Albumin 4.2 3.2-4.8 g/dL Lipase 51 12-53 U/L Assessment/Plan Problem List: (1) History of kidney stones (2) Bladder wall thickening Plan outpt cystoscopy TBA Plan discussed with: YANNICK [place] NP July 31, 2024 09:05
[2024-07-31] MEDS: LOSARTAN POTASSIUM 25 MG TAB PO SCH (10:01)
--- NOTE | 2024-07-31 10:37 | DVHPN2 ---
Progress Note - Dictate Date Seen: July 31, 2024 Has the PT tested + for MRSA If YES, has PT been informed?: No Medical Necessity Reason Pt with a Central, PICC or Fol: No Subjective No new complaints Patient is tolerating diet Urology consult noted vital signs Vital Sign Date Time Temp Pulse Resp B/P (MAP) Pulse Ox O2 Delivery O2 Flow Rate FiO2 07/31/24 10:01 137/98 07/31/24 08:37 98.4 60 18 100 98.4 07/31/24 08:00 Room Air* 0 21 Total Intake and Output 07/30/24 07/30/24 07/31/24 14:59 22:59 06:59 Intake Total 570 ml 900 ml Balance 570 ml 900 ml medications Current Medications Medications Dose Ordered Sig/Katrina Route Start Time Stop Time Status Last Admin Dose Admin Pantoprazole Sodium 40 mg DAILY@0600 PO 07/29/24 06:00 07/31/24 06:18 40 MG Ondansetron HCl 4 mg Q4HP PRN IV 07/28/24 23:30 Acetaminophen 650 mg Q6HP PRN PO 07/28/24 23:30 07/30/24 21:38 650 MG Diagnostic Test (Pha) 1 strip Q6HR 07/29/24 00:00 07/31/24 06:19 1 STRIP Insulin Human Regular Q6HR SC 07/29/24 00:00 07/31/24 06:29 4 UNITS Dextrose 50 ml UD PRN IV 07/28/24 23:30 Morphine Sulfate 2 mg Q6HPRN PRN IV 07/28/24 23:30 Sucralfate 1 gm BID@0600,2200 GT 07/29/24 22:00 07/31/24 06:18 1 GM Ceftriaxone Sodium 50 ml @ 100 mls/hr DAILY@09 IV 07/30/24 09:00 07/31/24 08:53 100 MLS/HR Insulin Glargine 20 units QAM SC 07/30/24 07:00 07/31/24 08:14 20 UNITS Insulin Human Lispro 8 units AC SC 07/30/24 07:00 07/30/24 12:20 8 UNITS Losartan Potassium 12.5 mg DAILY PO 07/31/24 10:00 07/31/24 10:01 12.5 MG objective General Appearance: Alert, Oriented X3, Cooperative, No acute distress, mild distress, moderate distress, severe distress, Other Lungs: Clear to auscultation, Normal air movement, Other Cardiovascular: Regular rate, Normal S1, Normal S2, No murmurs, Gallops, Rubs, Other Abdomen: Normal bowel sounds, Soft, No tenderness, No hepatospenomegaly, No masses, Other laboratory and microbiology Laboratory Tests 07/29/24 06:13 Test 07/31/24 09:45 Range/Units Serum Glucose Pending Problems(with codes): (1) Bladder wall thickening (2) Abdominal pain of unknown etiology (3) History of kidney stones Prognosis Plan Urology recommended outpatient cystoscopy Continue IV antibiotics; change to oral on discharge Increase fluid and fiber intake Advance diet as tolerated Outpatient follow up with GI Services next available appointment if needed Plan discussed with: Patient, Other (Nelly Foley) MARTINEZ SMYTH MD July 31, 2024 10:37
[2024-07-31 10:43] LABS: Chloride 103 mmol/L (98-107)
[2024-07-31 10:44] LABS: Anion Gap 8 (5-15); Calcium 9.7 mg/dL (8.7-10.4); Carbon Dioxide 24 mmol/L (20-31); Sodium 135 mmol/L (136-145)
[2024-07-31 10:49] LABS: BUN/Creatinine Ratio 9.1 (10.0-20.0); Blood Urea Nitrogen 9 mg/dL (9-23)
[2024-07-31 10:50] LABS: Glucose 221 mg/dL (74-106)
[2024-07-31] MEDS ORDERED: [UNRECOGNIZED DRUG - CODE] XX (14:43)
[2024-07-31] MEDS ORDERED: GLUC-224 VI (14:43)
[2024-07-31] MEDS ORDERED: LANC1MIS XX (14:44)
[2024-07-31] MEDS ORDERED: ALCOPAD58 XX (14:46)
[2024-07-31] MEDS ORDERED: CIPR500T4 PO (14:47)
[2024-07-31] MEDS ORDERED: PANT40TA2 PO (14:47)
--- NOTE | 2024-07-31 15:09 | DVHDSRES ---
Discharge Summary Date of Admission Resident Creating Document: ATTILA VANCE RESIDENT July 28, 2024 at 19:59 Date of Discharge: July 31, 2024 Admitting Diagnosis Abdominal pain Pain, nausea and vomiting Labs/Diagnostic Data: PATIENT: FAZAL WILSON ACCT: [id number] UNIT: [id number] : 1975 LOC: ER ROOM / BED: / AGE / SEX: 49 / M ADM STATUS: REG ER SERVICE [id number] ORDERING PHYSICIAN: IBRAHIMA LUO MD PROCEDURE(s): ABPL - CT AB PEL WO CON-NO ORAL OR IV REASON: pain llq ORDER NUMBER(s): [id number], ACCESSION NUMBER(s): [id number] Exam: CT CT AB PEL WO CON-NO ORAL OR IV History: pain llq Comparison Study: None Technique: Multidetector spiral CT of the abdomen and pelvis was performed from lung bases to pubic symphysis. Imaging was performed without IV contrast. Axial, coronal and sagittal multiplanar reformats were obtained from the axial data set by the technologist. Radiation dose : Abdomen/Pelvis: CTDIvol 8 mGy, DLP 489 mGy*cm. Findings: Evaluation of solid organs is limited due to lack of intravenous contrast use. Lung Bases: No acute or significant lung base finding. Normal heart size. No pleural or pericardial effusion. Liver: The liver is normal in size. No focal lesions. Gallbladder and biliary Tree: Unremarkable Spleen: Unremarkable Pancreas: The pancreas is grossly normal in appearance. Adrenal Glands: Unremarkable Kidneys: Kidneys are grossly normal without calculi or hydronephrosis. Bladder: Diffusely thick walled. Bowel: The stomach is grossly normal in appearance. Small bowel and colon are normal in caliber and distribution. Normal appendix is visualized in the right lower quadrant without findings of appendicitis. Ascites: Absent Lymphadenopathy: No mesenteric, retroperitoneal or periportal lymphadenopathy. Abdominal wall and Mesentery: Diffuse soft tissue density in the retroperitoneum. Vasculature: The visualized abdominal aorta is normal in size and caliber. Evaluation of abdominal and pelvic vessels is limited due to lack of intravenous contrast. Pelvic Organs: Unremarkable Musculoskeletal: No aggressive focal bony lesions, acute fractures or dislocation. IMPRESSION: 1. No acute abdominal or pelvic findings. Bladder is diffusely thick walled, correlate for cystitis. Diffuse soft tissue density in the retroperitoneum, could be related to retroperitoneal fibrosis. This can be better evaluated with CT of the abdomen and pelvis with contrast. Radiation optimization: All CT scans at this facility use at least one of these dose optimization techniques: Automated exposure control mA and/or kV adjustment per patient size (includes targeted exams where dose is matched to clinical indication) or iterative reconstruction. HS:Y ATED BY: SP MOLINA MD DICTATED DATE/TIME: 07/28/24 1650 Laboratory Results Test 07/31/24 09:45 07/31/24 06:24 07/29/24 11:15 07/29/24 06:13 Sodium Level 135 mmol/L (136-145) Potassium Level 4.0 mmol/L (3.5-5.1) Chloride Level 103 mmol/L (98-107) Carbon Dioxide Level 24 mmol/L (20-31) Anion Gap 8 (5-15) Blood Urea Nitrogen 9 mg/dL (9-23) Creatinine 0.99 mg/dL (0.700-1.30) Glomerular Filtration Rate Calc 93 mL/min (>90) BUN/Creatinine Ratio 9.1 (10.0-20.0) Serum Glucose 221 mg/dL (74-106) Calcium Level 9.7 mg/dL (8.7-10.4) POC Glucose 215 mg/dl (70-106) Urine Color Light-yellow (Yellow) Urine Clarity Clear (Clear) Urine pH 6.0 (5.0-9.0) Urine Specific [place] 1.018 (1.001-1.035) Urine Protein 1+ (Negative) Urine Ketones Trace (Negative) Urine Blood Negative /uL (Negative) Urine Nitrite Negative (Negative) Urine Bilirubin Negative (Negative) Urine Urobilinogen Normal mg/dL (Negative) Urine Leukocyte Esterase 1+ /uL (Negative) Urine RBC 4 /hpf (0 - 3) Urine Microscopic WBC 30 /HPF (0-3) Urine Squamous Epithelial Cells Few /hpf (<5) Urine Bacteria None seen /hpf (None Seen) Urine Glucose 4+ mg/dL (Normal) Urine Opiates Screen Neg (NEGATIVE) Urine Fentanyl Screen Neg (NEGATIVE) Urine Barbiturates Screen Neg (NEGATIVE) Urine Phencyclidine Screen Neg (NEGATIVE) Urine Amphetamines Screen Pos (NEGATIVE) Urine Benzodiazepines Screen Neg (NEGATIVE) Urine Cocaine Screen Neg (NEGATIVE) Urine Cannabinoids Screen Neg (NEGATIVE) White Blood Count 7.5 10^3/uL (4.4-10.8) Red Blood Count 5.93 10^6/uL (4.5-5.90) Hemoglobin 15.5 g/dL (13.5-17.5) Hematocrit 48.0 % (41.0-53.0) Mean Corpuscular Volume 80.9 fL (80.0-100.0) Mean Corpuscular Hemoglobin 26.1 pg (28.0-32.0) Mean Corpuscular Hemoglobin Concent 32.2 g/dL (32.0-36.0) Red Cell Distribution Width 16.6 % (11.8-14.3) Platelet Count 322 10^3/uL (140-450) Mean Platelet Volume 8.6 fL (6.9-10.8) Neutrophils (%) (Auto) 61.2 % (37.0-80.0) Lymphocytes (%) (Auto) 29.4 % (10.0-50.0) Monocytes (%) (Auto) 7.4 % (0.0-12.0) Eosinophils (%) (Auto) 1.1 % (0.0-7.0) Basophils (%) (Auto) 0.9 % (0.0-2.0) Neutrophils # (Auto) 4.6 10 ^3/uL (1.6-8.6) Lymphocytes # (Auto) 2.2 10 ^3/uL (0.4-5.4) Monocytes # (Auto) 0.6 10 ^3/uL (0-1.3) Eosinophils # (Auto) 0.1 10 ^3/uL (0-0.8) Basophils # (Auto) 0.1 10 ^3/uL (0-0.2) Nucleated Red Blood Cells 0.2 % Hemoglobin A1c > 13.8 % A1C (<5.7) Test 07/28/24 17:12 Total Bilirubin 0.5 mg/dL (0.2-1.0) Aspartate Amino Transferase (AST) 12 U/L (13-40) Alanine Aminotransferase (ALT) 10 U/L (7-40) Alkaline Phosphatase 158 U/L (46-116) Total Protein 8.1 g/dL (5.7-8.2) Albumin 4.2 g/dL (3.2-4.8) Lipase 51 U/L (12-53) Other Laboratory Tests 07/31/24 09:45 07/29/24 06:13 Brief Hx & Hospital Course: History of Present Illness 49-year-old male presents for evaluation of abdominal pain. Patient reports noticing hematuria three days ago. He states that since yesterday his urine has been clear. He states that two days ago he developed diffuse abdominal pain that is intermittent with associated dizziness. No nausea or vomiting. No fever or chills. Past Medical History: Hypertension, diabetes mellitus, pancreatitis Past Surgical History: Denies Family History: Cancer and diabetes mellitus Social History : Smoke: <1 pack per day, ALCOHOL: occassional, Lives: with Family, 11 year incarcerated released 2021 Brief Hospital course Patient is a 49-year-old male with a past medical history of hypertension diabetes irregular heartbeat, bleeding varices left lower extremity DVT depression and schizophrenia. Patient presented to the ED due to lower abdominal pain with radiation up towards the epigastrium region. Per the patient, last week Saturday he actually had gross hematuria associated with flank pain for 1 day. The 2nd day the patient passed a stone and the hematuria resolved. Patient today, had nor major complaints othe than mild epigastric pain rated 2/10. Patient is associated with mild nausea,but nor vomiting. [facility] and he takes Lantus metformin and lisinopril among others. He does not remember any of his psych medication. His initial lab work showed WBC unremarkable, CMP revealed mild hyponatremia otherwise unremarkable. CT abdomen showed that No acute abdominal or pelvic findings. Bladder is diffusely thick walled, correlate for cystitis. Diffuse soft tissue density in the retroperitoneum, could be related to retroperitoneal fibrosis. This can be better evaluated with CT of the abdomen and pelvis with contrast. Patient was managed for the acute cystitis with antibiotics.He is feeling better. He was also seent by GI and urology. GI did not see a need an EGD or colonoscopy,therefore patient has been advised to follow up patient. Same way, urology also saw the patient for the " diffusely thick bladder walled". They recommend out patient work up. Patient encouraged to follow up with these two specialties for the appropriate care. While in the hospital, patient's diabetes was also managed with lantus and lispro. Diabetes is poorly managed. Diabetes education given and patient said he will try. As patient is being discharged now, I sent to his pharmacy diabetic supplies such as glucometer, lancet, strips. patient already mentioned he has insulin but the supplies. Therefore, I hope with these supplies, he will be able to get some reading to send to his PCP's office. Review of Systems Constitutional: Denies fever no chills no feeling of malaise HEENT: Denies headache, ear pain, ear discharges, conjunctivitis, nasal discharge throat pain Cardiovascular: Denies chest pain, palpitation, orthopnea, PND, or pedal edema Respiratory: Denies shortness of breath, cough, sputum production, hemoptysis, GI: Denies abdominal pain, nausea, vomiting, diarrhea, hematemesis, hematochezia, :Mild lower abdominal pain. Denies frequency, urgency, hematuria, Endocrine: Denies unintentional weight gain or weight loss, feeling of hot flashes, Anjum: Denies easy bruising, bleeding disorders, epistaxis Musculoskeletal: Denies joint pains, muscle aches Psych: No evidence of depression, italo, suicidal ideation Examination General Appearance: Alert, Oriented X3, Cooperative, No acute distress HEENT: Atraumatic, PERRLA, EOMI, Mucous membrane moist/pink Respiratory: Clear to auscultation, Normal air movement Cardiovascular: Regular rate, Normal S1, Normal S2, No murmurs, no chest wall tenderness Abdominal: NO distention, no tenderness, bowel sounds present, no scars noted Extremities: No clubbing, No cyanosis, No edema, Normal pulses, No tenderness/swelling Skin: No rashes, No breakdown, No significant lesion Neuro: Normal gait, Normal speech, Strength at 5/5 X4 ext, Normal tone, Sensation intact, Cranial nerves 3-12 NL, Reflexes 2+ Psych/Mental Status: Mental status NL, Mood NL Diagnoses Acute Abdominal pain likely due to acute cystitis Acute Cystitis Uncontrolled diabetes type 2 Hyponatremia,monitor closely Bladder: Diffuse soft tissue density in the retroperitoneum, could be related to retroperitoneal fibrosis History of pancreatitis History of depression History of schizophrenia Amphetamine abuse Discharge plan Discharging back to [facility] today Ciprofloxacin 500 mg b.i.d. for the next 7 days Follow up at the discharge Clinic in 7 days Follow up with the urologist within the next 7-14 days Follow up with PCP for continuity of care Provided the patient with diabetic supplies such as glucometer lancet strips and alcohol pad for patient to check his blood pressure his blood sugar every day. Patient is to report to his primary care doctor to monitor his diabetes and also to to plan according to his blood sugar reading. if patient does not feel well he is advised to return to the ED as soon as possible. Discharge plan discussed with Dr. Selby Consults/Reason for consult Reason for Consultation: thickened bladder wall GI consult note: Chief Complaint: Abdominal pain Condition at Discharge: Good Final Diagnosis/Problems List Acute Abdominal pain likely due toacute cystitis Acute Cystitis Uncontrolled diabetes type 2 Hyponatremia Bladder: Diffuse soft tissue density in the retroperitoneum, could be related to retroperitoneal fibrosis History of pancreatitis History of depression History of schizophrenia Amphetamine abuse Discharge Disposition: [facility]idential [facility] Discharge Instruct/Medications Diet: Cardiac 2g Na,low cholest Diet comment: Diabetic diet Activity: No Restrictions, As Tolerated Follow Up/Referral: 7 days Medications: Continue home medications Patient insulin and diabetes testing supplies at home Discharge Statement: "Patient was advised to return to the ER or call 911 if any headaches, dizziness, shortness of breath, chest pain, abdominal pain, bleeding, fevers, or worsening of medical condition. Patient was counseled about treatment plan, medications, possible side effects, patientverbalized understanding. All questions were answered to the best of my ability. This discharge took greater then 30 minutes in planning, reviewing documentation, counseling the patient, and discussing with other team members." ASSESSMENT ASSESSMENT Assessment Acute Abdominal pain likely due toacute cystitis Acute Cystitis Uncontrolled diabetes type 2 Hyponatremia Bladder: Diffuse soft tissue density in the retroperitoneum, could be related to retroperitoneal fibrosis History of pancreatitis History of depression History of schizophrenia Amphetamine abuse Date of Service: July 31, 2024 Billing Provider: VICTOR MANUEL SALEH MD Common Visit Codes: 56393-QBB/OBS DISCH DAY >30min ATTILA VANCE RESIDENT July 31, 2024 15:08 VICTOR MANUEL SALEH MD August 03, 2024 00:33
== END 2024-07-31 17:49 | disposition home or self-care (01) | DRG 463 ==
LOC: ER 15:19 → OVERFLOW 19:59 → EAST 07-29 22:00
PROVIDERS: ADMIT Student in an Organized Health Care Education/Training Program; ATTEND Emergency Medicine
DX: N30.00 Acute cystitis without hematuria (principal); K68.2 Retroperitoneal fibrosis; E87.1 Hypo-osmolality and hyponatremia; I10 Essential (primary) hypertension; F20.9 Schizophrenia, unspecified; F15.10 Other stimulant abuse, uncomplicated; E11.9 Type 2 diabetes mellitus without complications; F17.210 Nicotine dependence, cigarettes, uncomplicated; Z87.442 Personal history of urinary calculi; Z87.19 Personal history of other diseases of the digestive system; Z86.718 Personal history of other venous thrombosis and embolism; Z83.3 Family history of diabetes mellitus; Z80.9 Family history of malignant neoplasm, unspecified; Z88.6 Allergy status to analgesic agent; Z88.5 Allergy status to narcotic agent
CPT/HCPCS: 36415; 74176; 80048; 80053; 80307; 81001; 82962; 83036; 83690; 85025; G0378; J1815; J2405; J2470